=== PATIENT | female | born 1945 | race Caucasian/White ===

== ENCOUNTER 2019-03-18 09:19 | Emergency (ER) | payer MEDICARE, BC ==
--- OUTSIDE RECORDS SUMMARY | 2019-03-18 09:31 | XMS REPORT | Continuity of Care Document ---
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 No Information Available Social History Type Date Description Comments Sex Unknown Tobacco Use Start: Unknown Patient has never smoked Smoking Status Reviewed: 01/27/19 Patient has never smoked Exercise Type/Frequency Exercises regularly Allergies, Adverse Reactions, Alerts Active Allergies Reaction Severity Comments Date Morphine Hives 11/07/2018 Inactive Allergies NKDA 07/07/2018 Medications Active Medications SIG Qnty Indications Ordering Date Provider Ciprodex 4 drops R ear bid x 7 1units H60.8x1 Je 03/10/2019 0.3-0.1% days Parker, Suspension Diflucan 1 by mouth every day 2tabs N76.0 Tamra Estrada, 01/27/2019 150mg Tablets x 2 days BE[facility]ING[facility]ER-Cde Clobetasol Propionate apply a small amount 45gm L90.0 Amber Louie, 03/29 to effected area 0.05% Ointment twice per day, up to 8 weeks. hold if no pain or itching. Estring place intravaginally Unknown 2mg Ring every 3 months Azelastine HCL one drop in each eye Unknown (Ophthalmic) twice a day 0.05% Solution Celecoxib 1 by mouth every day Unknown 100mg Capsules Vitamin D 1 by mouth every day Unknown (Cholecalciferol) 1000Unit Capsules Cranberry daily Unknown 200mg Capsules Irbesartan 1 by mouth every day Unknown 150mg Tablets Levothyroxine Sodium 1 by mouth every day Unknown 100mcg Tablets Metformin HCL 1 by mouth twice a Unknown 500mg day Tablets Potassium Chloride ER daily Unknown 8Meq Capsules ER Probiotic 1 by mouth every day Unknown Capsules Rosuvastatin Calcium 1 by mouth every day Unknown 5mg Tablets Spironolactone 1 by mouth every day Unknown 50mg Tablets Immunizations Description No Information Available Vital Signs Date Vital Result Comment 03/10/2019 1:01pm Heart Rate 80 /min BP Systolic 118 mmHg BP Diastolic 80 mmHg Respiratory Rate 16 /min Body Temperature 97.9 F O2 % BldC Oximetry 97 % room air 01/27/2019 2:37pm Height 65 inches 5'5" Weight 176.00 lb Heart Rate 88 /min BP Systolic 112 mmHg BP Diastolic 80 mmHg O2 % BldC Oximetry 98 % BMI (Body Mass Index) 29.3 kg/m2 Results Test Date Facility Test Result H/L Range Note Laboratory test 01/27/2019 [facility] Nico/Edson SEE RESULT [address] ast: [place] [address] Dna [phone] 1 SEE RESULT BELOW Name: ALEKSRONNY CRAIGE : [address]: Tamra Estrada NP [facility] Acct: [id number] Unit: [id number] AGE: 73 Location: [facility] Re01/27/19 SEX: F Status: REG REF SPEC: [id number] ROMAN: 01/27/19-[address] [facility] [address]: Tamra Estrada [facility] REQ: [id number] RECD: 01/27/19 STATUS: COMP _ SOURCE: VAGINAL [facility]: ORDERED: Ariela,Yeast DNA COMMENTS: [id number] Would you like to order Trichomonas Vaginalis testing? No Procedure Result Reported Site Gardnerella/Yeast: Vaginal DNA Final 01/28/19- 1438 ML Organism 1 Negative Eli Organism 2 Negative Gardnerella The presence of G. vaginalis, although suggestive, is not diagnostic for bacterial vaginosis. Results should be interpreted in conjuction with other clinical and laboratory data available. Women with vaginal discharge should be evaluated for risk factors of cervicitis and pelvic inflammatory disease, toxic shock syndrome (S.aureus), and if present, evaluated for organisms not included in this assay such as N. gonorrhoeae, C. trachomatis, Mobiluncus, Mycoplasma and/or Prevotella. Mixed infections may occur. The performance of this test on patient specimens collected during or immediately after antimicrobial therapy is unknown. The presence or absence of Eli species, or G. vaginalis cannot be used as a test for therapeutic success or failure. * - Main Lab . END OF REPORT DEPARTMENT OF PATHOLOGY, [address] [place] [address] Geoffrey Collins M.D. Director [facility] # [id number] Procedures Description No Information Available Medical Devices Description No Information Available Encounters Type Date Location Provider Dx Diagnosis Office Visit 01/27/2019 [facility] Tamra Estrada, N95.2 Postmenopausal 2:30p [facility] [place] atrophic vaginitis N76.0 Acute vaginitis Office Visit 11/07/2018 1:00p [facility] Tamra Estrada, N95.2 Postmenopausal [facility] atrophic vaginitis Assessments Date Code Description Provider 03/10/2019 H60.8x1 Other otitis externa, right ear MARK Perez 01/27/2019 N95.2 Postmenopausal atrophic vaginitis GUADALUPE MartinezP-Cde 01/27/2019 N76.0 Acute vaginitis GUADALUPE MartinezP-Cde 11/07/2018 N95.2 Postmenopausal atrophic vaginitis Tamra Estrada [facility] Plan of Treatment 03/10/2019 - Glenda Dudley, PAH60.8x1 Other otitis externa, right earNew Medication:Ciprodex 0.3-0.1 % - 4 drops R ear bid x 7 days Functional Status Description No Information Available Mental Status Description No Information Available Referrals Description No Information Available
--- OUTSIDE RECORDS SUMMARY | 2019-03-18 09:31 | XMS REPORT | Continuity of Care Document ---
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 Onset: 03/19/2011 Type 2 diabetes mellitus Vannessa Romeo M.D. Onset: 03/19/2011 Benign essential hypertension Vannessa Romeo M.D. Onset: 03/19/2011 Hypothyroidism Vannessa Romeo M.D. Onset: 03/19/2011 Heartburn Nabor Cárdenas MD Onset: 10/23/2016 Gastroduodenitis Nabor Cárdenas MD Onset: 10/23/2016 Benign neoplasm of colon Nabor Cárdenas MD Onset: 10/23/2016 Acute vaginitis Lexi Ceja MD Onset: 10/21/2017 Urine leukocyte test = +++ Lexi Ceja MD Onset: 10/21/2017 Dysuria Amna Briones PA Onset: 10/12/2017 Urinary tract infectious disease Alla Gutierrez M.D. Onset: 06/13/2018 H/O: urinary stone Alla Gutierrez M.D. Onset: 06/13/2018 Aortic aneurysm Amna Briones PA Onset: 06/04/2018 Cervical disc disorder Lexi Ceja MD Onset: 08/26/2018 Aneurysm of thoracic aorta Lexi Ceja MD Onset: 08/26/2018 Gallstone Lexi Ceja MD Onset: 08/26/2018 Encounter for other preprocedural Lexi Ceja MD Onset: 08/26/2018 examination Actinic keratosis Lexi Ceja MD Onset: 03/03/2019 Localized, primary osteoarthritis Lexi Ceja MD Onset: 03/03/2019 Social History Type Date Description Comments Sex Unknown Tobacco Use Start: Unknown Never Smoked Cigarettes Smoking Status Reviewed: 03/03/19 Never Smoked Cigarettes ETOH Use Denies alcohol use Tobacco Use Start: Unknown Patient has never smoked Recreational Drug Use Denies Drug Use Allergies, Adverse Reactions, Alerts Active Allergies Reaction Severity Comments Date Sulfa Antibiotics 10/05/2012 Morphine 04/22/2011 Medications Active Medications SIG Qnty Indications Ordering Date Provider Estring 1 ring 2units R10.2 Marcial, 03/03/2019 2mg Ring intravaginally every MD Lexi 3 mo. Shingrix 50 mcg intramuscular 1units Z00.00 Marcial, 03/03/2019 50mcg/0.5ML today and in 2 to 6 MD Lexi Suspension Rec months Onetouch Verio Flex check glucose once a 1units E11.9 08/26/2018 Bloodglucose day at alternating MD Lexi Monitoring System times w/Device Kit Onetouch Ultra use to test accuracy 1units 08/26/2018 Control of glucometer MD Lexi Solution Onetouch Verio test glucose once a 100units E11.9 08/26/2018 day at alternating MD Lexi Strips times Onetouch Delica use to check glucose 100units E11.9 08/26/2018 Lancets Fine 30G 1x/day MD Lexi 30G Misc Celecoxib take one capsule by 100caps Marcial, 08/26/2018 100mg mouth with food once MD Lexi Capsules a day as needed Metformin HCL Take 1 Tablet Twice 60tabs E11.9 Lakesha Kendrick, 06/10/2018 500mg A Day SOCK IRONER Tablets Meclizine HCL 1 tab 3X/D as needed 60tabs Marcial, 01/19/2018 12.5mg dizziness or vertigo MD Lexi Tablets Clobetasol apply thin film over 30gm N89.8 Cheryl Goss, 12/09/2017 Propionate affected area QHS M.D. 0.05% Ointment Rosuvastatin Calcium take 1 by mouth 80tabs Marcial, 02/25/2017 daily on mwf MD Lexi 5mg Tablets Levothyroxine Sodium take 1 tablet daily 90tabs Marcial, 01/18/2017 MD Lexi 100mcg Tablets Azelastine HCL Instill 1 Drop In 18ml Marcial, 12/11/2015 (Ophthalmic) Both Eyes Twice A MD Lexi 0.05% Day (Maximum Daily Solution Dose 4 Drops Per Day) Irbesartan 1/2 by mouth every 45tabs I10 Marcial, 09/10/2015 150mg day at bedtime MD Lexi Tablets Potassium Chloride Take 1 Tablet Daily 90tabs Marcial, 12/12/2014 ER MD Lexi 8Meq Tablets ER Spironolactone Take 1 Tablet Daily 90tabs Kathie Hernandez, 07/18/2014 50mg PNP-BC, SOCK IRONER, Tablets Ibclc Vitamin D High 1 by mouth every day Unknown Potency 1000Unit Capsules Cranberry otc daily Unknown 200mg Capsules Probiotic 1 by mouth every day Unknown Capsules Immunizations CPT Code Status Date Vaccine Lot # 18780 Given 04/07/2018 Influenza Virus Vaccine, Quadrivalent, 36 Mos+, .5ML 22002 Given 03/31/2017 Influenza High Dose 67388 Given 02/25/2017 Td Preservative Free For Use In Individuals 7 Yrs [id number] Or Older 06575 Given 10/29/2016 Zoster Vaccine Live Injection Q2038 Given 05/07/2016 Influenza Vaccine (Fluzone) Age 3 And Older Q2038 Given 04/26/2015 Influenza Vaccine (Fluzone) Age 3 And Older [id number] 27504 Given 04/26/2015 Pneumococcal Conjugate Vaccine 13 Valent For [id number] Intramuscular Use 62830 Given 04/25/2014 flu vaccination 04854 Given 03/28/2013 flu vaccination 12132 Given 03/23/2012 flu vaccination 72799 Given 06/10/2011 flu vaccination 62664 Given 06/10/2011 flu vaccination 35585 Given 06/10/2011 Pneumovax Injection 66994 Given 06/09/2010 flu vaccination 41890 Given 06/27/2009 H1N1 Immuniation Adminstration 35756 Given 03/26/2009 flu vaccination 21267 Given 07/10/2004 flu vaccination 16379 Given 05/21/2003 flu vaccination 72560 Given 03/21/2003 Tetnus Injection 06038 Given 06/07/2002 flu vaccination 94303 Given 05/28/2000 Influenza Virus Whole 09846 Given 04/23/1999 Influenza Virus Vaccine 79723 Given 05/16/1997 Influenza Virus Vaccine 62198 Given 05/01/1996 Influenza Virus Vaccine 15164 Given 05/21/1995 Influenza Virus Vaccine Vital Signs Date Vital Result Comment 03/03/2019 10:17am BP Systolic Sitting Left Arm 128 mmHg BP Diastolic Sitting Left Arm 76 mmHg Body Temperature 98.0 F Heart Rate 80 /min Respiratory Rate 18 /min Height 66 inches 5'6" Weight 177.00 lb BMI (Body Mass Index) 28.6 kg/m2 BSA (Body Surface Area) 1.90 m2 [place] body weight in kilograms 59 kg 08/26/2018 11:09am BP Systolic 104 mmHg BP Diastolic 66 mmHg Body Temperature 96.8 F Heart Rate 80 /min Respiratory Rate 18 /min Height 66 inches 5'6" Weight 178.00 lb BMI (Body Mass Index) 28.7 kg/m2 BSA (Body Surface Area) 1.90 m2 [place] body weight in kilograms 59 kg O2 % BldC Oximetry 98 % Results Test Date Facility Test Result H/L Range Note Urine Dipstick 03/03/2019 [facility] Ua Leuko 3+ High Negative Ua Nitrite - Negative Ua Urobilinogen .2 0.2 - 1.0 E.U./dL Ua Protein 1+ High Negative Ua PH 6 Low 6.5-7.5 Ua Blood 3+ High Negative Ua Specific [place] 1.015 1.010-1.030 Ua Ketones - Negative Ua Bilirubin - Negative Ua Glucose - Negative Microalbumin,Random 03/03/2019 [facility] Microalbumin,Urine 208.0 < Urine [address] mg/L 20.0 [place] [address] [phone] LDL Cholesterol 03/03/2019 [facility] Cholesterol 226 High <200 1, Profile [address] mg/dL 2 [place], [place] [id number] [phone] Triglycerides 223 mg/dL High <150 3 HDL Cholesterol 43 mg/dL >40 4 LDL-Cholesterol 138 mg/dL < 100 5 Reflex add FT3? Y Reflex add FT4? Y Comprehensive Metabolic 03/03/2019 [facility] Glucose 149 mg/dL High 74-[address] [place] [address] [phone] BUN 13 mg/dL Normal 7-18 Creatinine 1.0 mg/dL Normal 0.6-1.3 Glom Filtration Rate, Estimate 58 mL/min >60 If >60 mL/min >60 6 BUN/Creat 13.0 ratio Sodium 133 mmol/L Low 136-145 Potassium 4.1 mmol/L Normal 3.5-5.1 Chloride 99 mmol/L Normal 98-107 Carbon Dioxide 29 mmol/L Normal 21-32 Anion Gap 5 mEq/L Low 8-16 Calcium 9.1 mg/dL Normal 8.5-10.1 Total Protein 7.9 g/dL Normal 6.4-8.2 Albumin 4.0 g/dL Normal 3.4-5.0 Globulin 3.9 g/dL Normal 1.9-4.3 Alb/Glob 1.0 ratio Bilirubin,Total 0.8 mg/dL Normal 0.2-1.0 Sgot/Ast 19 U/L Normal 15-37 SGPT/Alt 29 U/L Normal 12-78 Alkaline Phosphatase 82 U/L Normal 45-117 Reflex add FT3? Y Reflex add FT4? Y TSH Reflex 03/03/2019 [facility] Thyroid Stim 0.29 uIU/mL Low 0.30-4.20 FT4 And/Or [address] Hormone FT3 [place] [address] [phone] Reflex add FT3? Y Reflex add FT4? Y CBC W/Automated 03/03/2019 [facility] White Blood 6.7 K/uL Normal 3.1-10.[address] [place] [address] [phone] Red Blood Count 4.67 M/uL Normal 3.90-5.40 Hemoglobin 14.2 gm/dL Normal 11.6-15.8 Hematocrit 42.4 % Normal 36.0-46.1 Mean Cell Volume 90.8 fl Normal 80.9-99.0 Mean Corpuscular HGB 30.4 pg Normal 25.9-32.7 Mean Corpuscular HGB Conc 33.5 g/dL Normal 30.8-34.3 Platelet Count 175 K/uL Normal 155-360 Red Cell Distri Width SD 45.1 fl Normal 36-47 Red Cell Distri Width %CV 13.6 % Normal 11.7-14.4 Mean Platelet Volume 10.9 fl Normal 8.9-12.4 Neut% 75.9 % High 40.4-72.8 Lymph % 13.6 % Low 20.0-42.0 [place] % 7.8 % Normal 4.3-13.2 Eo% 1.2 % Normal 0.0-6.6 Bas% 0.6 % Normal 0.0-1.1 Immature Grans 0.9 % Normal 0.0-5.0 NRBC % 0.0 /100WBC < 10/ 100 WBC Neut# 5.09 K/uL Normal 1.8-7.0 Lymph # 0.91 K/uL Low 1.0-4.0 [place] # 0.52 K/uL Normal 0.3-0.9 Eos # 0.08 K/uL Normal 0.0-0.5 Baso # 0.04 K/uL Normal 0.0-0.1 Immature Grans Absolute 0.06 K/uL NRBC # 0.00 K/uL Free T3 03/03/2019 [facility] Free T3 2.46 pg/mL Normal 2.18-3.98 [address] [place], [place] [address] [phone] Reflex add FT3? Y Reflex add FT4? Y Free T4 03/03/2019 [facility] Free T4 1.63 ng/dL High 0.76-1.46 [address] [place], [place] [id number] [phone] Reflex add FT3? Y Reflex add FT4? Y Glycohemoglobin 03/03/2019 [facility] Glycohemoglobin 6.5 % High 4.2-6.3 7 A1c [address] [facility] (A1c) [place], [place] [id number] [phone] eAG 140 mg/dL Laboratory test finding 09/08/2018 N2N/CCD Import Inr 0.94 Protime 9.7 s 9.2 - 11.9 aPTT 26.5 s 22.0 - 34.3 Laboratory test finding 09/08/2018 N2N/CCD Import Alb/Glob ratio 1.5 Ratio Albumin 4.1 g/dL 3.2 - 4.5 Alkaline Phosphatase 81 U/L 45 - 117 Alt 26 U/L 12 - 78 Anion Gap 8 mmol/L 7 - 16 Ast 20 U/L 11 - 39 BUN/Creatinine Ratio 19.3 10.0 - 20.0 Ratio Bilirubin, Total 0.9 mg/dL 0.0 - 1.0 Calcium 8.7 mg/dL 8.4 - 10.2 Chloride 97 mmol/L Low 100 - 108 Co2 28 mmol/L 22 - 31 Creatinine 1.14 mg/dL High 0.60 - 1.00 GFR MDRD Af Amer 57 Low >59 ml/min/1.73m2 GFR MDRD Non Af Amer 47 Low >59 ml/min/1.73m2 Globulin 2.8 g/dL 2.7 - 4.3 Glucose 115 mg/dL High 70 - 99 Potassium 4.4 mmol/L 3.6 - 5.2 Protein, Total 6.9 g/dL 6.4 - 8.2 Sodium 133 mmol/L Low 136 - 145 Urea nitrogen 22 mg/dL 7 - 24 Laboratory test finding 09/08/2018 N2N/CCD Import Hematocrit 41.9 % 36.0 - 47.0 Hemoglobin 14.0 g/dL 12.0 - 16.0 MCH 31.0 pg 27.0 - 32.0 MCHC 33.4 g/dL 32.0 - 36.0 MCV 92.6 fL 80.0 - 95.0 MPV 9.1 fL 7.1 - 10.7 Platelets 140 10*3/uL Low 150 - 450 RBC 4.53 10*6/uL 4.00 - 5.40 RDW 14.2 % 10.5 - 14.5 WBC 6.6 10*3/uL 4.1 - 11.0 Laboratory test finding 09/08/2018 N2N/CCD Import Antibody Screen Negative Patient Abo/Rh AB Positive Specimen Expiration Date 09/21/2018 Testing site Performed AT [address] [place] [id number] Glycohemoglobin 09/06/2018 [facility] [address] Glycohemoglobin 6.1 % Normal 4.2-6.3 8, [address] (A1c) [place] [address] [phone] eAG 128 mg/dL 1 E78.5 E03.9 I10 Z13.0 2 Reference Guidelines*: Desirable: ........... < 200 mg/dL Borderline High: ..... 200-239 mg/dL High: ................ >= 240 mg/dL * The National Cholesterol Education Program (NCEP) 3 Reference Guidelines*: Normal: ............. < 150 mg/dL Borderline High: .... 150-199 mg/dL High: ............... 200-499 mg/dL Very High: .......... > 500 mg/dL * Source: National Cholesterol Education Program (NCEP) 4 Reference Guidelines*: Low HDL: ..... < 40 mg/dL Normal: ..... 40-60 mg/dL Desirable: ... > 60 mg/dL *The National Cholesterol Education Program(NCEP) 5 Reference Guidelines*: Optimal:........... <100 mg/dL Near Optimal....... 100-129 mg/dL Borderline High.... 130-159 mg/dL High............... 160-189 mg/dL Very High.......... >=190 mg/dL * Source: National Cholesterol Education Program (NCEP) 6 Note: Persistent reduction for 3 months or more in an eGFR <60 mL/min/1.73 m2 defines CKD. Patients with eGFR values >/=60 mL/min/1.73 m2 may also have CKD if evidence of persistent proteinuria is present. The original MDRD equation for estimated GFR is not valid for patients less than 18 years of age. Additional information may be found at www.kdoqi.org. 7 Elevated levels of HbA1c suggest the need for more aggressive treatment of glycemia. The [place] [employer] recommends that a primary goal of therapy should be a HbA1c of <7% and that physicians should re-evaluate the treatment regimen in patients with HbA1c values consistently >8%. 8 E11.9 9 Elevated levels of HbA1c suggest the need for more aggressive treatment of glycemia. The [place] [employer] recommends that a primary goal of therapy should be a HbA1c of <7% and that physicians should re-evaluate the treatment regimen in patients with HbA1c values consistently >8%. Procedures Date Code Description Status 03/03/2019 51882 Destruct-Skin Tags/Lesions-Local Anesthesia - First Completed Lesion 03/03/2019 [id number] Mammogram Completed 03/03/2019 [id number] Bone Mineral Density Test Completed 11/11/2018 [id number] Diabetic Foot Exam Completed 08/11/2016 [id number] Colonoscopy Completed 07/12/2016 [id number] Colonoscopy Completed Medical Devices Description No Information Available Encounters Type Date Location Provider Dx Diagnosis Office Visit 03/03/2019 [facility] Lexi Ceja, Z00.00 Encntr for general 10:15a Galen ANDERSEN MD adult medical exam w/o abnormal findings E11.9 Type 2 diabetes mellitus without complications E03.9 Hypothyroidism, unspecified E78.5 Hyperlipidemia, unspecified I10 Essential (primary) hypertension I71.2 Thoracic aortic aneurysm, without rupture K80.20 Calculus of gallbladder w/o cholecystitis w/o obstruction L57.0 Actinic keratosis M19.91 Primary osteoarthritis, unspecified site R82.998 Other abnormal findings in urine Assessments Date Code Description Provider 03/03/2019 Z00.00 Encounter for general adult medical examination Lexi Ceja MD without abnormal findings 03/03/2019 E11.9 Type 2 diabetes mellitus without complications Lexi Ceja MD 03/03/2019 E03.9 Hypothyroidism, unspecified Lexi Ceja MD 03/03/2019 E78.5 Hyperlipidemia, unspecified Lexi Ceja MD 03/03/2019 I10 Essential (primary) hypertension Lexi Ceja MD 03/03/2019 I71.2 Thoracic aortic aneurysm, without rupture Lexi Ceja MD 03/03/2019 K80.20 Calculus of gallbladder without cholecystitis Lexi Ceja MD without obstru 03/03/2019 L57.0 Actinic keratosis Lexi Ceja MD 03/03/2019 M19.91 Primary osteoarthritis, unspecified site Lexi Ceja MD 03/03/2019 R82.998 Other abnormal findings in urine Lexi Ceja MD Plan of Treatment Future Appointment(s):03/20/2019 9:30 am - Maycol Rios M.D. at [facility]/04/2019 10:15 am - Lexi Ceja MD at [facility]03/03/2019 - Lexi Ceja MDZ00.00 Encounter for general adult medical examination without abnormal findingsNew Medication:Shingrix 50 mcg/0.5ML - 50 mcg intramuscular today and in 2 to 6 monthsNew Xrays:Mammography, Screening, Bilateral, Ordered: 03/03/19Dexa Scan, 1 Or More, Ordered: 03/03/19Comments: INCREASE EXERCISE TOLERATED;LOSE SOME WEIGHT;DAILY SUNSCREEN TO AVOID SKIN CANCER;CALCIUM INTAKE DISCUSSED; COLON CA SCREENING UP TO DATE;MAMMOGRAM AND BONE DENSITY ORDERED, I GAVE YOU THE ORDER SO YOU MAY MAKE YOUR OWN APPOINTMENT.IMMUNIZATIONS UP TO DATE, GET YEARLY HIGH-DOSE FLU SHOT.I HAVE CALLED IN THE [facility] FOR YOU.HEALTH CARE PROXY IN CHART.E11.9 Type 2 diabetes mellitus without complicationsComments:YOU ARE DOING GREAT.LABS ORDERED;NO CHANGE IN MEDICATIONSFollow up:6 MOE03.9 Hypothyroidism, unspecifiedComments: CHECK THYROID LEVEL; ADJUST DOSE NEEDED.E78.5 Hyperlipidemia, unspecifiedComments:CHECK FASTING LIPIDS; CONTINUE ON CURRENT DOSE OF STATIN PENDING RESULTS;FOLLOW LOW-CHOL. DIET, REG.[id number] Essential (primary) hypertensionComments:WATCH SALT; CONT. WITH SAME MEDICAL REGIME;REGULAR EXERCISE STRESSED AND LOSE EMPPIFC10.2 Thoracic aortic aneurysm, without ruptureComments:IT IS SMALL SO FAR; YOU ARE FOLLOWING UP WITH DR. GA FOR THIS.K80.20 Calculus of gallbladder without cholecystitis without obstruComments :I THINK THIS IS WHAT IS CAUSING YOUR FREQUENT NAUSEA AND ABDOMINAL DISCOMFORT. I AM REFERRING YOU TOA SURGEON FOR EVALUATION.Referral:Maycol Rios MD, Surgery,JasahuwJ88.0 Actinic keratosisComments:CHECK SKIN REGULARLY; USE DAILY SUNSCREEN;EXPECT SOME MILD WORSENING OF REDNESS AT FIRST.M19.91 Primary osteoarthritis, unspecified siteComments:YOU MAY CONTACT DR. ROOT IF NEEDED; ANOTHER SOS DRRagini CAN TAKE CARE OF YOUR WRIST IF NEEDED, DR. NORRIS.F/U WITH DR. LYNN IF NEEDED.R82.998 Other abnormal findings in urineComments:SEND CULTURE;TX IF NEEDED Functional Status Functional Condition Comment Date Status Complete lower and upper and lower dentures Active Independent with all ADL's Active Glasses Active Independent with all IADL's Active Mental Status Description No Information Available Referrals Refer to Dr Reason for Referral Status Appt Date Maycol Rios MD gall stones, symptoms Scheduled 03/20/2019 [address] [place] [address] [phone] Buck Ga MD aneurysm Closed 12/26/2018 [address] [facility] [address] [place] [address] [phone]
[2019-03-18 09:47] VITALS: BP 118/70
--- NOTE | 2019-03-18 10:28 | UC ---
Ear Complaint HPI - HPI Summary HPI Summary: Pt presents with c/o right ear pain. Pt states that she was seen at the " [facility]" at [facility] and was told she had cerumen impaction and otitis externa. Cerumen was removed and ciprodex drops prescribed. Pt states that her ear pain has imporved but has not resolved and she still has drainage from right ear. - History of Current Complaint Chief Complaint: UCEar Stated Complaint: RIGHT EAR PAIN Time Seen by Provider: 03/18/19 10:21 Hx Obtained From: Patient ?: No Onset/Duration: Sudden Onset, Lasting Days, Still Present Severity Initially: Mild Severity Currently: Moderate Pain Intensity: 7 Associated Signs/Symptoms: Positive: Discharge - right ear - Allergies/Home Medications Allergies/Adverse Reactions: Allergies Allergy/AdvReac Type Severity Reaction Status Date / Time morphine Allergy Hives Verified 03/18/19 09:49 Sulfa (Sulfonamide Allergy Rash Verified 03/18/19 09:49 Antibiotics) Home Medications: Home Medications Irbesartan 75 mg PO DAILY 03/18/19 [History Confirmed 03/18/19] Multivitamin [Multivitamins] 1 dose PO DAILY 03/18/19 [History Confirmed ] Potassium Chloride 10 meq PO DAILY 03/18/19 [History Confirmed 03/18/19] Spironolactone 50 mg PO DAILY 03/18/19 [History Confirmed 03/18/19] metFORMIN* [Glucophage 500 MG TAB *] 500 mg PO BID 03/18/19 [History Confirmed 03/18/19] PMH/Surg Hx/FS Hx/Imm Hx Previously Healthy: Yes Endocrine History: Diabetes Cardiovascular History: Hypertension - Surgical History Surgical History: Yes Surgery Procedure, Year, and Place: cervical disectomy 09/27 - Family History Known Family History: Positive: Cardiac Disease - Social History Occupation: Retired Lives: With Family Alcohol Use: None Substance Use Type: None Smoking Status (MU): Never Smoked Tobacco Have You Smoked in the Last Year: No Review of Systems All Other Systems Reviewed And Are Negative: Yes Constitutional: Positive: Negative Skin: Positive: Negative Eyes: Positive: Negative ENT: Positive: Ear Ache Respiratory: Positive: Negative Cardiovascular: Positive: Negative Gastrointestinal: Positive: Negative Genitourinary: Positive: Negative Motor: Positive: Negative Neurovascular: Positive: Negative Musculoskeletal: Positive: Negative Neurological: Positive: Negative Psychological: Positive: Negative Is Patient Immunocompromised?: No Physical Exam Triage Information Reviewed: Yes Appearance: Well-Appearing Vital Signs: Initial Vital Signs Temp 97.1 F 03/18/19 09:42 Pulse 95 03/18/19 09:42 Resp 16 03/18/19 09:42 BP 118/70 03/18/19 09:42 Pulse Ox 100 03/18/19 09:42 Vital Signs Reviewed: Yes Eye Exam: Normal ENT: Positive: Other - creamy, white discharge in right ear canal, right ear canal swelling Dental Exam: Normal Neck exam: Normal Respiratory: Positive: No respiratory distress Musculoskeletal Exam: Normal Neurological Exam: Normal Psychological Exam: Normal Skin Exam: Normal Ear Complaint Course/Dx - Differential Dx/Diagnosis Differential Diagnosis/HQI/PQRI: Cerumen Impaction, Otitis Externa Provider Diagnosis: Otitis externa, fungal, right ear Discharge ED - Sign-Out/Discharge Documenting (check all that apply): Patient Departure All imaging exams completed and their final reports reviewed: No Studies - Discharge Plan Condition: Stable Disposition: HOME Prescriptions: Acetic Acid 4 drop RIGHT EAR Q6H 7 Days #1 shae Patient Education Materials: Otitis Externa (ED) Referrals: Lexi Ceja MD [Primary Care Provider] - If Needed Additional Instructions: Please follow up with your PCP as needed. - Billing Disposition and Condition Condition: STABLE Disposition: Home
== END 2019-03-18 10:36 | disposition home or self-care (01) ==
LOC: UCCORT 09:19
DX: H66.91 Otitis media, unspecified, right ear (principal); B48.8 Other specified mycoses; Z88.1 Allergy status to other antibiotic agents; E11.9 Type 2 diabetes mellitus without complications; Z79.84 Long term (current) use of oral hypoglycemic drugs; I10 Essential (primary) hypertension
CPT/HCPCS: 99212; G0463